=== PATIENT | male | born 1975 | race Caucasian/White ===

== ENCOUNTER 2016-12-20 09:23 | Emergency (ER) | payer BC, OTHER ==
[2016-12-20] MEDS ORDERED: Acetaminophen/HYDROcodone 325-10 MG Tab PO ONE (09:42)
[2016-12-20] MEDS ORDERED: Ketorolac 30 MG/ML SDV IM ONE (09:42)
--- NOTE | 2016-12-20 09:47 | EDM.PDOC ---
ED HPI GENERAL MEDICAL PROBLEM - General Chief Complaint: Lower Extremity Injury/Pain Stated Complaint: left knee pain Time Seen by Provider: 12/20/16 09:37 Source of Information: Reports: Patient History Limitations: Reports: No Limitations - History of Present Illness INITIAL COMMENTS - FREE TEXT/NARRATIVE: Patient presents to the emergency room today with complaints of left knee pain. He was out deer hunting when he stepped out stepped into a hole and fell twisting his left knee. He denies hitting his head denies loss of consciousness he has no other complaints this morning he has lateral soreness and overall joint edema to 2 soft tissue swelling. Denies any other medical history he has no allergies. Patient denies smoking alcohol use or drug use. Onset: Today, Sudden Quality: Reports: Ache Severity: Moderate Improves with: Reports: Cold Therapy Worsens with: Reports: Movement Associated Symptoms: Reports: No Other Symptoms - Related Data Allergies Allergy/AdvReac Type Severity Reaction Status Date / Time No Known Allergies Allergy Verified 12/20/16 10:04 Home Meds: Home Meds FLUoxetine [PROzac] 2 tab PO DAILY 08/05/14 [History] Past Medical History Other Musculoskeletal History: Knee injury 07/07, torn ligaments (petellar) Other Psychiatric History: ETOH abuse Review of Systems - Review of Systems Review Of Systems: See Below Constitutional: Reports: No Symptoms Eyes: Reports: No Symptoms Ears: Reports: No Symptoms Nose: Reports: No Symptoms Mouth/Throat: Reports: No Symptoms Respiratory: Reports: No Symptoms Cardiovascular: Reports: No Symptoms GI/Abdominal: Reports: No Symptoms Genitourinary: Reports: No Symptoms Musculoskeletal: Reports: Leg Pain (left) Skin: Reports: No Symptoms Neurological: Reports: No Symptoms Psychiatric: Reports: No Symptoms ED EXAM, GENERAL - Physical Exam Exam: See Below Exam Limited By: No Limitations General Appearance: Alert, WD/WN, Mild Distress Peripheral Pulses: 2+: Posterior Tibial (L), Posterior Tibial (R), Dorsalis Pedis (L), Dorsalis Pedis (R) Extremities: Normal Inspection, Normal Capillary Refill, Joint Swelling, Limited Range of Motion (On exam patient's left knee has swelling varus and valgus maneuvers are otherwise negative anterior drawer test is negative, knee appears stable and intact) Neurological: Alert, Oriented Course - Re-Assessments/Exams Free Text/Narrative Re-Assessment/Exam: 12/20/16 10:47 X-rays negative for acute process in the left knee. We'll place left knee in an immobilizer has heat patient has a MRI scheduled for tomorrow morning and he will follow up with Dr. Shanelle Coffey. Departure - Departure Time of Disposition: 10:57 Disposition: Home, Self-Care 01 Condition: Good Clinical Impression: Injury of left knee - Discharge Information Instructions: Crutch Use, [id number], Knee Sprain, [id number] Additional Instructions: Make sure to elevate urine left knee above the level of the heart to help reduce swelling. Make sure to use compression wrap to reduce swelling. You can also put ice on your knee for 20-30 minutes at a time do not place directly on your knee to reduce the risk of frostbite. Usual pain medication as prescribed. Make sure to leave your knee in the immobilizer as much as possible. You may also use it while sleeping. Make sure to go to your MRI appointment tomorrow. The results will be sent to Dr. Shanelle Coffey at [facility] . Please call her to make an appointment at your earliest convenience to review the MRI results. She will review additional interventions if needed at that appointment. Please call us with any questions or concerns. - Problem List & Annotations (1) Injury of left knee SNOMED Code(s): 488954977 Code(s): S89.92XA - UNSPECIFIED INJURY OF LEFT LOWER LEG, INITIAL ENCOUNTER Status: Acute Priority: Low Current Visit: Yes Qualifiers: Encounter type: initial encounter Qualified Code(s): S89.92XA - Unspecified injury of left lower leg, initial encounter - Problem List Review Problem List Initiated/Reviewed/Updated: Yes - Assessment/Plan Assessment:: left knee sprain Plan: Make sure to elevate urine left knee above the level of the heart to help reduce swelling. Make sure to use compression wrap to reduce swelling. You can also put ice on your knee for 20-30 minutes at a time do not place directly on your knee to reduce the risk of frostbite. Usual pain medication as prescribed. Make sure to leave your knee in the immobilizer as much as possible. You may also use it while sleeping. Make sure to go to your MRI appointment tomorrow. The results will be sent to Dr. Shanelle Coffey at [facility] . Please call her to make an appointment at your earliest convenience to review the MRI results. She will review additional interventions if needed at that appointment. Please call us with any questions or concerns.
[2016-12-20 10:09] VITALS: BP 120/75
== END 2016-12-20 11:00 | disposition home or self-care (01) ==
LOC: VM.ED 09:23
DX: S83.92XA Sprain of unspecified site of left knee, initial encounter (principal); W19.XXXA Unspecified fall, initial encounter
CPT/HCPCS: 73562; 96372; 99283; A9270; J1885

== ENCOUNTER 2017-12-22 21:35 | Emergency (ER) | payer OTHER ==
[2017-12-22 22:13] VITALS: BP 145/93
--- NOTE | 2017-12-22 22:18 | EDM.PDOC ---
ED HPI GENERAL MEDICAL PROBLEM - General Chief Complaint: Lower Extremity Injury/Pain Stated Complaint: Left knee injury Time Seen by Provider: 12/22/17 21:47 Source of Information: Reports: Patient History Limitations: Reports: No Limitations - History of Present Illness INITIAL COMMENTS - FREE TEXT/NARRATIVE: Patient was lifting at work and turned to his left. He has pain to the outside and back of his leg and felt his leg pull in that area. He states his knee does also buckle. Onset: Other Onset Date: 12/20/17 Duration: Getting Worse, Intermittent Location: Reports: Lower Extremity, Left Quality: Reports: Sharp Severity: Mild Worsens with: Reports: Movement Associated Symptoms: Reports: No Other Symptoms left knee Pain Score (Numeric/FACES): 3 - Related Data Allergies Allergy/AdvReac Type Severity Reaction Status Date / Time No Known Allergies Allergy Verified 12/22/17 22:14 Home Meds: Home Meds FLUoxetine [PROzac] 40 mg PO DAILY 08/05/14 [History] Past Medical History Other Musculoskeletal History: Knee injury 07/07, torn ligaments (petellar) Psychiatric History: Reports: Depression Other Psychiatric History: ETOH abuse - Past Surgical History HEENT Surgical History: Reports: Adenoidectomy, Tonsillectomy GI Surgical History: Reports: Hernia, Inguinal Review of Systems - Review of Systems Review Of Systems: See Below Constitutional: Reports: No Symptoms Eyes: Reports: No Symptoms Ears: Reports: No Symptoms Nose: Reports: No Symptoms Mouth/Throat: Reports: No Symptoms Respiratory: Reports: No Symptoms Cardiovascular: Reports: No Symptoms GI/Abdominal: Reports: No Symptoms Genitourinary: Reports: No Symptoms Musculoskeletal: Reports: Leg Pain (left knee) Skin: Reports: No Symptoms Neurological: Reports: No Symptoms Psychiatric: Reports: No Symptoms ED EXAM, GENERAL - Physical Exam Exam: See Below Exam Limited By: No Limitations General Appearance: Alert, WD/WN, No Apparent Distress Peripheral Pulses: 2+: Posterior Tibial (L), Posterior Tibial (R), Dorsalis Pedis (L), Dorsalis Pedis (R) Extremities: Normal Inspection, No Pedal Edema, Normal Capillary Refill, Leg Pain (left leg pain, mild knee edema 1+, varus/valgus maneuver illicits pain, negative anterior drawer test) Psychiatric: Normal Affect, Normal Mood Skin Exam: Warm, Dry, Intact, Normal Color, No Rash Lymphatic: No Adenopathy Course - Vital Signs Last Recorded V/S: Last Vital Signs Temp 36.4 C 12/22/17 21:35 Pulse 65 12/22/17 21:35 Resp 16 12/22/17 21:35 BP 145/93 H 12/22/17 21:35 Pulse Ox 96 12/22/17 21:35 - Radiology Interpretation Free Text/Narrative:: 12/23/17 1533 MRI results called back to patient. Negative for ligament or cartilage damage. Does have a ruptured popliteal cyst. Recommended follow up with primary doctor. Departure - Departure Time of Disposition: 22:12 Disposition: Home, Self-Care 01 Condition: Good Clinical Impression: Ruptured cyst of left popliteal space Left knee sprain Qualifiers: Encounter type: initial encounter Involved ligament of knee: unspecified ligament Qualified Code(s): S83.92XA - Sprain of unspecified site of left knee, initial encounter - Discharge Information *PRESCRIPTION DRUG MONITORING PROGRAM REVIEWED*: Not Applicable *COPY OF PRESCRIPTION DRUG MONITORING REPORT IN PATIENT AMARI: Not Applicable Instructions: Knee Sprain, Adult Referrals: PCP,Unknown [Primary Care Provider] - Forms: ED Department Discharge Additional Instructions: You are scheduled for an MRI tomorrow. You are scheduled for 11:15. Please arrive 15 minutes early to prepare paperwork. The test will take approximately 30 minutes. I will follow up and call you with the results later tomorrow. Elevate your leg, ice, and alternate tylenol and ibuprofen for pain and swelling. You may also take aleve/naproxen. Please call if you have any additional questions or concerns. - Problem List & Annotations (1) Left knee sprain SNOMED Code(s): 77605336 Code(s): S83.92XA - SPRAIN OF UNSPECIFIED SITE OF LEFT KNEE, INITIAL ENCOUNTER Status: Acute Priority: Medium Qualifiers: Encounter type: initial encounter Involved ligament of knee: unspecified ligament Qualified Code(s): S83.92XA - Sprain of unspecified site of left knee , initial encounter - Problem List Review Problem List Initiated/Reviewed/Updated: Yes - Assessment/Plan Assessment:: left knee sprain Plan: You are scheduled for an MRI tomorrow. You are scheduled for 11:15. Please arrive 15 minutes early to prepare paperwork. The test will take approximately 30 minutes. I will follow up and call you with the results later tomorrow. Elevate your leg, ice, and alternate tylenol and ibuprofen for pain and swelling. You may also take aleve/naproxen. Please call if you have any additional questions or concerns.
== END 2017-12-22 22:35 | disposition home or self-care (01) ==
LOC: VM.ED 21:35
DX: S83.92XA Sprain of unspecified site of left knee, initial encounter (principal); M66.0 Rupture of popliteal cyst; M66.174 Rupture of synovium, right foot; X50.0XXA Overexertion from strenuous movement or load, initial encounter; Y99.0 Civilian activity done for income or pay
CPT/HCPCS: 99283

== ENCOUNTER 2018-09-18 16:44 | Emergency (ER) | payer OTHER ==
[2018-09-18] MEDS ORDERED: Ketorolac 30 MG/ML SDV IM ONE (16:55)
--- NOTE | 2018-09-18 16:57 | EDM.PDOC ---
ED HPI GENERAL MEDICAL PROBLEM - General Chief Complaint: Lower Extremity Injury/Pain Stated Complaint: RT ANKLE SWOLLEN AND SORE Time Seen by Provider: 09/18/18 16:45 Source of Information: Reports: Patient History Limitations: Reports: No Limitations - History of Present Illness INITIAL COMMENTS - FREE TEXT/NARRATIVE: Patient comes in to the emergency department with complaint of her right ankle injury. Patient states this happened approximately 4 nights ago. He is walking home from a bar Saturday night and fell twisting his right ankle. He states it is been able to ambulate on that ankle ever since. However the pain is progressively getting worse. Today he states that it is the worse that is been all week. It's swollen cramping sensation, and sharp sensation of discomfort. He is having difficulty bearing weight. He denies any numbness or tingling on the lower extremity but states he's got cramping sensation on the medial aspect of the ankle. He also denies any redness or increased warmth to that extremity. Has limited range of motion today due to the pain and discomfort. He denies any CMS changes. He also denies any previous injury, fracture, or surgeries on that ankle. Onset: Sudden, Gradual Quality: Reports: Sharp Severity: Severe Improves with: Reports: Immobilization Worsens with: Reports: Movement Associated Symptoms: Reports: No Other Symptoms Treatments POLISHER ALUMINUM: Reports: NSAIDS Right Ankle Pain Score (Numeric/FACES): 4 - Related Data Allergies Allergy/AdvReac Type Severity Reaction Status Date / Time No Known Allergies Allergy Verified 09/18/18 16:58 Home Meds: Home Meds FLUoxetine [PROzac] 40 mg PO DAILY 08/05/14 [History] Past Medical History Other Musculoskeletal History: Knee injury 07/07, torn ligaments (petellar) Psychiatric History: Reports: Depression Other Psychiatric History: ETOH abuse - Past Surgical History HEENT Surgical History: Reports: Adenoidectomy, Tonsillectomy GI Surgical History: Reports: Hernia, Inguinal Review of Systems - Review of Systems Review Of Systems: See Below Constitutional: Reports: No Symptoms Eyes: Reports: No Symptoms Ears: Reports: No Symptoms Nose: Reports: No Symptoms Mouth/Throat: Reports: No Symptoms Respiratory: Reports: No Symptoms Cardiovascular: Reports: No Symptoms GI/Abdominal: Reports: No Symptoms Genitourinary: Reports: No Symptoms Skin: Reports: No Symptoms Neurological: Reports: No Symptoms Psychiatric: Reports: No Symptoms ED EXAM, GENERAL - Physical Exam Exam: See Below Exam Limited By: No Limitations General Appearance: Alert, WD/WN, No Apparent Distress Respiratory/Chest: No Respiratory Distress, No Accessory Muscle Use Cardiovascular: Normal Peripheral Pulses, Regular Rate, Rhythm Peripheral Pulses: 3+: Dorsalis Pedis (L), Dorsalis Pedis (R) Back Exam: Normal Inspection, Full Range of Motion Extremities: Leg Pain (right ankle-moderate swelling around ankle joint, ecchymosis noted on the medial aspect of the arch. Limited ROM due to pain on extension, flexion, and adduction) Neurological: Alert, Oriented Psychiatric: Normal Affect, Normal Mood Course - Vital Signs Last Recorded V/S: Last Vital Signs Temp 36.6 C 09/18/18 16:50 Pulse 82 09/18/18 16:50 Resp 16 09/18/18 16:50 BP 141/89 H 09/18/18 16:50 Pulse Ox 95 09/18/18 16:50 - Orders/Labs/Meds Orders: Active Orders 24 hr Category Date Time Status Ankle Min 3V Rt [CR] Stat Exams 09/18/18 16:51 Taken Meds: Medications Discontinued Medications Generic Name Dose Route Start Last Admin Trade Name Freq PRN Reason Stop Dose Admin Ketorolac Tromethamine 30 mg 09/18/18 16:55 09/18/18 17:02 Toradol IM 09/18/18 16:56 30 mg ONETIME ONE Administration Departure - Departure Time of Disposition: 18:05 Disposition: Home, Self-Care 01 Condition: Good Clinical Impression: Moderate right ankle sprain Qualifiers: Encounter type: initial encounter Qualified Code(s): S93.401A - Sprain of unspecified ligament of right ankle, initial encounter - Discharge Information *PRESCRIPTION DRUG MONITORING PROGRAM REVIEWED*: Not Applicable *COPY OF PRESCRIPTION DRUG MONITORING REPORT IN PATIENT AMARI: Not Applicable Instructions: Ankle Sprain, Ankle Exercises-SportsMed, Pain Medicine Instructions, [id number] Referrals: PCP,None [Primary Care Provider] - Forms: ED Department Discharge Additional Instructions: 1. rest 2. elevated the extremity as much as possible above the level of the heart 3. apply ice 3-4 times a day for 20 minutes each time 4. Wear the brace for comfort and compression. Can remove to shower and to complete range of motion of the ankle 5. Follow up as needed 6. Activity on that ankle should be reduced for the next couple days to allow for healing. 7. wear proper support shoes to prevent from further injuring 8. Can take ibuprofen and Tylenol as needed for pain and discomfort 9. Call with any questions or concerns - My Orders Last 24 Hours: My Active Orders 09/18/18 16:51 Ankle Min 3V Rt [CR] Stat - Assessment/Plan Last 24 Hours: My Active Orders 09/18/18 16:51 Ankle Min 3V Rt [CR] Stat Assessment:: 1. right ankle injury-sprain Plan: 1. xray completed. Results reviewed with the patient 2. Ketoralac ordered in the ED. 3. Ice applied in the ER. 4. Air splint applied to help with comfort 5. Education regarding, rest, ice, compress, elevated, activity, diet, OTC medication and follow up provided 6. All questions and concerns addressed prior to discharge
[2018-09-18 17:11] VITALS: BP 141/89; PULSE 82
--- NOTE | 2018-09-18 18:01 | CR ---
[id number] RAD/RAD Ankle Right 3V Min EXAM: RAD Ankle Right 3V Min CLINICAL DATA: TRAUMA COMPARISON: NO PREVIOUS SIMILAR EXAM IS AVAILABLE. FINDINGS: No fracture or dislocation is seen. There is no radiopaque foreign body in the soft tissues. There is no air in the soft tissues. There is no cortical thickening or periosteal reaction either. IMPRESSION: NEGATIVE PLAIN FILM EXAM. Jae Sweet MD 09/18/18 [id number] Thank you for allowing us to participate in the care of your patient.
== END 2018-09-18 18:14 | disposition home or self-care (01) ==
LOC: VM.ED 16:44
DX: S93.401A Sprain of unspecified ligament of right ankle, initial encounter (principal); F32.9 Major depressive disorder, single episode, unspecified; Z79.899 Other long term (current) drug therapy; X50.9XXA Other and unspecified overexertion or strenuous movements or postures, initial encounter
CPT/HCPCS: 73610; 99283; J1885

== ENCOUNTER 2019-05-01 20:02 | Emergency (ER) | payer OTHER ==
[2019-05-01] MEDS ORDERED: Sodium Chloride 0.9% 10 ML Syringe FLUSH PRN (20:37)
[2019-05-01] MEDS ORDERED: Sodium Chloride 0.9% 1,000 ML IV ONE (20:38)
[2019-05-01] MEDS ORDERED: Ondansetron 4 MG/2 ML SDV IVPUSH ONE (20:38)
[2019-05-01] MEDS ORDERED: HYDROmorphone 1 MG/ML Syringe IVPUSH ONE (20:39)
[2019-05-01 21:18] LABS: ANION GAP 14.7 mmol/L (10-20); CHLORIDE,CL 103 mmol/L (98-107); SODIUM,NA 141 mmol/L (136-145)
[2019-05-01] MEDS ORDERED: Iopamidol 612 MG/ML 100 ML Bottle IVPUSH ONE (21:31)
[2019-05-01] MEDS ORDERED: Take Home: metroNIDAZOLE 500 MG Tab, 4 Tab Pack PO ONE (22:21)
[2019-05-01] MEDS ORDERED: Take Home: Ciprofloxacin 500 MG Tab, 2 Tab Pack PO ONE (22:21)
--- NOTE | 2019-05-02 01:49 | EDM.PDOC ---
ED HPI GENERAL MEDICAL PROBLEM - General Stated Complaint: ABDOMINAL PAIN Time Seen by Provider: 05/01/19 20:02 Source of Information: Reports: Patient History Limitations: Reports: No Limitations - History of Present Illness INITIAL COMMENTS - FREE TEXT/NARRATIVE: Pt. presents to ER with complaints of LLQ abdominal pain. Denies any fever or chills. He also complains of some eliceo bloody stools. No nausea or vomiting. Pt. denies discomfort like this in the past. Pt. denies any chest pain or shortness of breath. Pt. denies any dysuria, frequency or urgency. He denies any trauma to the area. Onset: Today Onset Date: 05/02/19 Location: Reports: Abdomen Quality: Reports: Ache Severity: Moderate Associated Symptoms: Reports: Nausea/Vomiting. Denies: Fever/Chills, Rash, Seizure, Shortness of Breath, Syncope - Related Data Allergies Allergy/AdvReac Type Severity Reaction Status Date / Time No Known Allergies Allergy Verified 09/18/18 16:58 Home Meds: Home Meds FLUoxetine [PROzac] 40 mg PO DAILY 08/05/14 [History] Past Medical History Other Musculoskeletal History: Knee injury 07/07, torn ligaments (petellar) Psychiatric History: Reports: Depression Other Psychiatric History: ETOH abuse - Past Surgical History HEENT Surgical History: Reports: Adenoidectomy, Tonsillectomy GI Surgical History: Reports: Hernia, Inguinal ED ROS GENERAL - Review of Systems Review Of Systems: See Below Constitutional: Reports: No Symptoms HEENT: Reports: No Symptoms Respiratory: Reports: No Symptoms Cardiovascular: Reports: No Symptoms Endocrine: Reports: No Symptoms GI/Abdominal: Reports: Abdominal Pain, Bloody Stool, Diarrhea, Hematochezia. Denies: Black Stool, Constipation, Decreased Appetite, Difficulty Swallowing, Distension, Hematemesis, Melena, Nausea, Vomiting : Reports: No Symptoms Musculoskeletal: Reports: No Symptoms Skin: Reports: No Symptoms Neurological: Reports: No Symptoms ED EXAM, GENERAL - Physical Exam Exam: See Below Exam Limited By: No Limitations General Appearance: Alert, WD/WN, No Apparent Distress Nose: Normal Inspection, Normal Mucosa, No Blood Throat/Mouth: Normal Inspection, Normal Lips, Normal Teeth, Normal Gums, Normal Oropharynx, Normal Voice, No Airway Compromise Head: Atraumatic, Normocephalic Neck: Normal Inspection, Supple, Non-Tender, Full Range of Motion Respiratory/Chest: No Respiratory Distress, Lungs Clear, Normal Breath Sounds, No Accessory Muscle Use, Chest Non-Tender Cardiovascular: Normal Peripheral Pulses, Regular Rate, Rhythm, No Edema, No Gallop, No JVD, No Murmur, No Rub Peripheral Pulses: 4+: Radial (R) GI/Abdominal: Normal Bowel Sounds, Soft, Tender. No: Guarding, Rigid, Rebound, Mass, Hepatomegaly (Male) Exam: Deferred Rectal (Males) Exam: Deferred Back Exam: Normal Inspection, Full Range of Motion Extremities: Normal Inspection, Normal Range of Motion, Non-Tender, No Pedal Edema, Normal Capillary Refill Neurological: Alert, Oriented, CN II-XII Intact, Normal Cognition, Normal Gait, Normal Reflexes, No Motor/Sensory Deficits Psychiatric: Normal Affect, Normal Mood Skin Exam: Warm, Dry, Intact, Normal Color, No Rash Lymphatic: No Adenopathy Course - Orders/Labs/Meds Orders: Active Orders 24 hr Category Date Time Status Abdomen Pelvis w Cont [CT] Stat Exams 05/01/19 21:26 Taken UA W/MICROSCOPIC [URIN] Stat Lab 05/01/19 20:38 Ordered Sodium Chloride 0.9% [Saline Flush] Med 05/01/19 20:37 Active 10 ml FLUSH ASDIRECTED PRN Peripheral IV Insertion Adult [OM.PC] Routine Oth 05/01/19 20:38 Ordered Medication Orders Sodium Chloride (Saline Flush) 10 ml FLUSH ASDIRECTED PRN PRN Reason: Keep Vein Open Labs: Laboratory Tests 05/01/19 05/01/19 05/01/19 Range/Units 20:50 20:50 20:50 WBC 9.0 (4.0-10.0) x10^3/uL RBC 4.65 (4.5-6.0) x10^6/uL Hgb 13.7 L (14.0-18.0) g/dL Hct 41.3 (40.0-52.0) % MCV 88.8 (78.0-93.0) fL MCH 29.5 (26.0-32.0) pg MCHC 33.2 (32.0-36.0) g/dL RDW Coeff of Ha 12.8 (10.0-15.0) % Plt Count 232 (130-400) x10^3/uL Neut % (Auto) 74.1 (50.0-80.0) % Lymph % (Auto) 15.8 L (25.0-50.0) % Garrett % (Auto) 8.8 (2.0-11.0) % Eos % (Auto) 1.1 (0.0-4.0) % Baso % (Auto) 0.2 (0.2-1.2) % PT 11.6 (10.0-12.8) SEC INR 1.0 L (2.0-3.5) Sodium 141 (136-145) mmol/L Potassium 3.7 (3.5-5.1) mmol/L Chloride 103 (98-107) mmol/L Carbon Dioxide 27 (21-32) mmol/L Anion Gap 14.7 (10-20) mmol/L BUN 9 (7-18) mg/dL Creatinine 1.2 (0.70-1.30) mg/dL Est Cr Clr Drug Dosing TNP Estimated GFR (MDRD) > 60 Glucose 115 H (74-106) mg/dL Calcium 8.9 (8.5-10.1) mg/dL Corrected Calcium 9.46 (8.5-10.1) mg/dL Total Bilirubin 1.1 H (0.2-1.0) mg/dL AST 11 L (15-37) U/L ALT 21 (16-63) U/L Alkaline Phosphatase 56 (46-116) U/L C-Reactive Protein 3.1 H (<=0.9) mg/dL Total Protein 7.0 (6.4-8.2) g/dL Albumin 3.3 L (3.4-5.0) g/dL Globulin 3.7 Albumin/Globulin Ratio 0.89 Meds: Medications Generic Name Dose Route Start Last Admin Trade Name Freq PRN Reason Stop Dose Admin Sodium Chloride 10 ml 05/01/19 20:37 Saline Flush FLUSH ASDIRECTED PRN Keep Vein Open Discontinued Medications Generic Name Dose Route Start Last Admin Trade Name Freq PRN Reason Stop Dose Admin Ciprofloxacin 1 packet 05/01/19 22:21 05/01/19 22:40 Take Home: Ciprofloxacin 500 Mg, 2 Tab Pack PO 05/01/19 22:22 1 packet ONETIME ONE Administration Hydromorphone HCl 1 mg 05/01/19 20:39 05/01/19 20:59 Dilaudid IVPUSH 05/01/19 20:40 1 mg ONETIME ONE Administration Sodium Chloride 1,000 mls @ 1,000 mls/hr 05/01/19 20:38 05/01/19 20:52 Normal Saline IV 05/01/19 21:37 1,000 mls/hr .BOLUS ONE Administration Iopamidol 100 ml 05/01/19 21:31 Isovue-300 (61%) IVPUSH 05/01/19 21:32 ONETIME ONE Metronidazole 1 packet 05/01/19 22:21 05/01/19 22:39 Take Home: Metronidazole 500 Mg, 4 Tab Pack PO 05/01/19 22:22 1 packet ONETIME ONE Administration Ondansetron HCl 4 mg 05/01/19 20:38 05/01/19 20:56 Zofran IVPUSH 05/01/19 20:39 4 mg ONETIME ONE Administration - Radiology Interpretation Free Text/Narrative:: CT abdomen and pelvis showed evidence of acute diverticulitis Departure - Departure Time of Disposition: 23:00 Disposition: Home, Self-Care 01 Clinical Impression: Diverticulitis - Discharge Information Instructions: Diverticulitis, [id number], Ciprofloxacin tablets, Metronidazole tablets or capsules Referrals: PCP,None [Primary Care Provider] - Additional Instructions: Cipro 500mg 1 tab twice daily for 10 days Flagyl 500mg 1 tab three times daily for 10 days Minimize consumption of nuts and seeds. Also, Try to consume more fruits and vegetables, as this will help make your stools more bulky. Minimize consumption of high fat/refined foods. After the diarrhea has resolved, you might want to start miralax once daily to help soften the stools as well. It is also important that you drink plenty of water (at least 8-10 big glasses per day). Recheck in clinic in 10-14 days, sooner if having worsening discomfort, fever, chills, etc. - My Orders Last 24 Hours: My Active Orders 05/01/19 20:37 Sodium Chloride 0.9% [Saline Flush] 10 ml FLUSH ASDIRECTED PRN 05/01/19 20:38 UA W/MICROSCOPIC [URIN] Stat Peripheral IV Insertion Adult [OM.PC] Routine 05/01/19 21:26 Abdomen Pelvis w Cont [CT] Stat - Assessment/Plan Last 24 Hours: My Active Orders 05/01/19 20:37 Sodium Chloride 0.9% [Saline Flush] 10 ml FLUSH ASDIRECTED PRN 05/01/19 20:38 UA W/MICROSCOPIC [URIN] Stat Peripheral IV Insertion Adult [OM.PC] Routine 05/01/19 21:26 Abdomen Pelvis w Cont [CT] Stat Plan: Cipro 500mg 1 tab twice daily for 10 days Flagyl 500mg 1 tab three times daily for 10 days Minimize consumption of nuts and seeds. Also, Try to consume more fruits and vegetables, as this will help make your stools more bulky. Minimize consumption of high fat/refined foods. After the diarrhea has resolved, you might want to start miralax once daily to help soften the stools as well. It is also important that you drink plenty of water (at least 8-10 big glasses per day). Recheck in clinic in 10-14 days, sooner if having worsening discomfort, fever, chills, etc.
[2019-05-02 02:34] VITALS: BP 121/78; PULSE 83
--- NOTE | 2019-05-02 09:43 | CT ---
[id number] CT/CT Abdomen Pelvis W IV EXAM: ABDOMEN AND PELVIS CT WITH CONTRAST INDICATION: LLQ ABD PAIN. BLOODY STOOLS. COMPARISON: None. DISCUSSION: There are multiple sigmoid diverticula. There is a thick-walled segment with mild to moderate surrounding inflammatory changes compatible with acute diverticulitis. No drainable abscess or remote free air. After the acute episode, colonoscopy may be useful to exclude other underlying pathology. Small fat-containing umbilical hernia. The gallbladder is incompletely distended secondary to nonfasting status. The liver, pancreas, spleen, adrenal glands, kidneys, small bowel, and the appendix are normal in appearance. The osseous structures are unremarkable. IMPRESSION: 1. Acute sigmoid diverticulitis. No drainable abscess or distant free air. Armand Aldridge MD 05/02/19 0942 Thank you for allowing us to participate in the care of your patient.
== END 2019-05-01 22:54 | disposition home or self-care (01) ==
LOC: VM.ED 20:02
DX: K57.32 Diverticulitis of large intestine without perforation or abscess without bleeding (principal); F32.9 Major depressive disorder, single episode, unspecified; Z79.899 Other long term (current) drug therapy
CPT/HCPCS: 36415; 74177; 80053; 81001; 81002; 82272; 85025; 85610; 86140; 96361; 96374; 96375; 99285-25; A9270-GY; J1170; J2405; J7030

== ENCOUNTER 2019-09-14 12:22 | Emergency (ER) | payer OTHER ==
[2019-09-14] MEDS ORDERED: Ketorolac 30 MG/ML SDV IM ONE (12:31)
[2019-09-14] MEDS ORDERED: methylPREDNISolone Sodium Succinate 125 MG/2 ML SDV IM ONE (12:31)
[2019-09-14 12:35] VITALS: BP 115/65; PULSE 76
--- NOTE | 2019-09-14 17:33 | EDM.PDOC ---
ED HPI GENERAL MEDICAL PROBLEM - General Chief Complaint: Lower Extremity Injury/Pain Time Seen by Provider: 09/14/19 12:25 Source of Information: Reports: Patient History Limitations: Reports: No Limitations - History of Present Illness INITIAL COMMENTS - FREE TEXT/NARRATIVE: Pt. presents to ER with complaints of R great toe pain. Pt. states that he has a longstanding history of gout. He is out of his indomethacin. Denies any trauma to the extremity. No fever or chills. Pt. states that he doesn't think he has been drinking enough water. Onset: Today Location: Reports: Lower Extremity, Right Quality: Reports: Throbbing Severity: Severe Right Toe-Long Pain Score (Numeric/FACES): 10 - Related Data Allergies Allergy/AdvReac Type Severity Reaction Status Date / Time No Known Allergies Allergy Verified 09/14/19 12:28 Home Meds: Home Meds FLUoxetine [PROzac] 40 mg PO DAILY 08/05/14 [History] Past Medical History Other Musculoskeletal History: Knee injury 07/07, torn ligaments (petellar) Psychiatric History: Reports: Depression Other Psychiatric History: ETOH abuse - Past Surgical History HEENT Surgical History: Reports: Adenoidectomy, Tonsillectomy GI Surgical History: Reports: Hernia, Inguinal Social & Family History - Tobacco Use Smoking Status *Q: Light Tobacco Smoker Years of Tobacco use: 20 Packs/Tins Daily: 0 Review of Systems - Review of Systems Review Of Systems: See Below Constitutional: Reports: No Symptoms Eyes: Reports: No Symptoms Ears: Reports: No Symptoms Nose: Reports: No Symptoms Mouth/Throat: Reports: No Symptoms Respiratory: Reports: No Symptoms Cardiovascular: Reports: No Symptoms GI/Abdominal: Reports: No Symptoms Genitourinary: Reports: No Symptoms Musculoskeletal: Reports: Foot Pain, Joint Pain, Joint Swelling Skin: Reports: No Symptoms Neurological: Reports: No Symptoms Psychiatric: Reports: No Symptoms ED EXAM, GENERAL - Physical Exam Exam: See Below Exam Limited By: No Limitations General Appearance: Alert, WD/WN, No Apparent Distress Extremities: Joint Swelling, Limited Range of Motion, Redness Course - Vital Signs Last Recorded V/S: Last Vital Signs Temp 37.2 C 09/14/19 12:25 Pulse 76 09/14/19 12:25 Resp 16 09/14/19 12:25 BP 115/65 06/29/20 12:25 Pulse Ox 95 09/14/19 12:25 - Orders/Labs/Meds Meds: Medications Discontinued Medications Generic Name Dose Route Start Last Admin Trade Name Oswaldo PRN Reason Stop Dose Admin Ketorolac Tromethamine 30 mg 09/14/19 12:31 09/14/19 12:43 Toradol IM 09/14/19 12:32 30 mg ONETIME ONE Administration Methylprednisolone Sodium Succinate 125 mg 09/14/19 12:31 09/14/19 12:44 Solu-Medrol IM 09/14/19 12:32 125 mg ONETIME ONE Administration Departure - Departure Time of Disposition: 17:35 Disposition: Home, Self-Care 01 Clinical Impression: Gout - Discharge Information Instructions: Low-Purine Eating Plan Referrals: PCP,None [Primary Care Provider] - Forms: ED Department Discharge Additional Instructions: Indomethacin 50mg 1 tab three times daily as needed for pain Prednisone 20mg 1 tab daily for 5 days Avoid foods outlined on discharge instructions Increase intake of water. Minimize consumption of caffeine and alcohol. Sepsis Event Note (ED) - Evaluation Sepsis Screening Result: No Definite Risk - Focused Exam Vital Signs: Vital Signs Temp Pulse Resp BP Pulse Ox 09/14/19 12:25 37.2 C 76 16 115/65 95 - Problem List Review Problem List Initiated/Reviewed/Updated: Yes - Assessment/Plan Plan: Indomethacin 50mg 1 tab three times daily as needed for pain Prednisone 20mg 1 tab daily for 5 days Avoid foods outlined on discharge instructions Increase intake of water. Minimize consumption of caffeine and alcohol.
== END 2019-09-14 12:50 | disposition home or self-care (01) ==
LOC: VM.ED 12:22
DX: M10.9 Gout, unspecified (principal); F32.9 Major depressive disorder, single episode, unspecified; F17.210 Nicotine dependence, cigarettes, uncomplicated; Z79.899 Other long term (current) drug therapy
CPT/HCPCS: 96372; 99283; J1885; J2930

== ENCOUNTER 2019-10-28 21:57 | Emergency (ER) | payer SELFPAY ==
[2019-10-28] MEDS ORDERED: Lidocaine 1% with EPINEPHrine 1:100,000 20 ML MDV INFILT ONE (22:37)
[2019-10-28 23:46] VITALS: BP 134/84; PULSE 72
--- NOTE | 2019-10-29 06:21 | EDM.PDOC ---
ED HPI GENERAL MEDICAL PROBLEM - General Chief Complaint: Laceration Stated Complaint: Laceration to right thigh Time Seen by Provider: 10/28/19 22:30 Source of Information: Reports: Patient History Limitations: Reports: No Limitations - History of Present Illness INITIAL COMMENTS - FREE TEXT/NARRATIVE: Pt. presents to ER with complaints of laceration to anterior R thigh. Pt. was out golfing and states that he cut it on a fence looking for a lost ball. Pt. admits to drinking heavily tonight. States tetanus is up to date. Denies trauma elsewhere. Onset Date: 10/28/19 Location: Reports: Lower Extremity, Right Quality: Reports: Sharp Right thigh Pain Score (Numeric/FACES): 5 - Related Data Allergies Allergy/AdvReac Type Severity Reaction Status Date / Time No Known Allergies Allergy Verified 10/28/19 23:45 Home Meds: Home Meds FLUoxetine [PROzac] 40 mg PO DAILY 08/05/14 [History] Past Medical History Other Musculoskeletal History: Knee injury 07/07, torn ligaments (petellar) Psychiatric History: Reports: Depression Other Psychiatric History: ETOH abuse - Past Surgical History HEENT Surgical History: Reports: Adenoidectomy, Tonsillectomy GI Surgical History: Reports: Hernia, Inguinal ED ROS GENERAL - Review of Systems Review Of Systems: Comprehensive ROS is negative, except as noted in HPI. ED EXAM, SKIN/RASH Exam: See Below Exam Limited By: No Limitations Skin: Warm, Dry, Other (Series of superficial and subcutaneous lacerations to R anterior thigh. There is a 1 cm sub q laceration and a 3 cm sub q laceration. The rest are superficial and require no intervention.) ED SKIN PROCEDURES - Laceration/Wound Repair Right Anterior Thigh Appearance: Subcutaneous Distal NVT: No Tendon Injury Anesthetic Type: Local Local Anesthesia - Lidocaine (Xylocaine): 1% with EPI Local Anesthetic Volume: Other (7) Saline Irrigation (cc's): 1,000 Exploration/Debridement/Repair: Wound Explored Closed with: Sutures Lac/Wound length In cm: 4 Suture Size: 3-0 Course - Vital Signs Last Recorded V/S: Last Vital Signs Temp 36.8 C 10/28/19 21:57 Pulse 72 10/28/19 21:57 Resp 16 10/28/19 21:57 BP 134/84 10/28/19 21:57 Pulse Ox 97 10/28/19 21:57 - Orders/Labs/Meds Meds: Medications Discontinued Medications Generic Name Dose Route Start Last Admin Trade Name Oswaldo PRN Reason Stop Dose Admin Lidocaine/Epinephrine 20 ml 10/28/19 22:37 10/28/19 22:44 Xylocaine 1% With Epinephrine 1:100,000 INFILT 10/28/19 22:38 7 ml ONETIME ONE Administration Departure - Departure Time of Disposition: 22:58 Disposition: Home, Self-Care 01 Condition: Good Clinical Impression: Laceration - Discharge Information Instructions: Laceration Care, Adult Referrals: Shanelle Velasquez MD [Primary Care Provider] - Forms: ED Department Discharge Additional Instructions: Keep dry for 48 hours. Change dressing once daily. Sutures out in 12 days. Return to ER if redness, swelling, discharge from the area. Sepsis Event Note (ED) - Evaluation Sepsis Screening Result: No Definite Risk - Focused Exam Vital Signs: Vital Signs Temp Pulse Resp BP Pulse Ox 10/28/19 21:57 36.8 C 72 16 134/84 97 - Problem List Review Problem List Initiated/Reviewed/Updated: Yes - Assessment/Plan Plan: Keep dry for 48 hours. Change dressing once daily. Sutures out in 12 days. Return to ER if redness, swelling, discharge from the area.
== END 2019-10-28 22:58 | disposition home or self-care (01) ==
LOC: VM.ED 21:57
DX: S71.111A Laceration without foreign body, right thigh, initial encounter (principal); F32.9 Major depressive disorder, single episode, unspecified; Z79.899 Other long term (current) drug therapy; W26.8XXA Contact with other sharp object(s), not elsewhere classified, initial encounter
CPT/HCPCS: 12002; 99282-25

== ENCOUNTER 2019-12-07 11:09 | Emergency (ER) | payer SELFPAY ==
[2019-12-07] MEDS ORDERED: GI Cocktail Oral Solution 30 ML PO ONE (11:18)
--- NOTE | 2019-12-07 11:37 | CR ---
[id number] RAD/RAD Chest PA And Lateral EXAM: RAD Chest PA And Lateral INDICATION: CHEST PAIN. COMPARISON: None. DISCUSSION: Cardiomediastinal silhouette is normal in size and contour. No infiltrate, effusion, pneumothorax, or edema. IMPRESSION: No significant cardiopulmonary abnormality. Erick Mcgill DO 12/07/19 1136 Thank you for allowing us to participate in the care of your patient.
[2019-12-07 12:10] LABS: CHLORIDE,CL 102 mmol/L (98-107); SODIUM,NA 138 mmol/L (136-145)
[2019-12-07 12:11] LABS: ANION GAP 15.2 mmol/L (10-20)
--- NOTE | 2019-12-07 12:20 | EDM.PDOC ---
ED HPI GENERAL MEDICAL PROBLEM - General Chief Complaint: Chest Pain Time Seen by Provider: 12/07/19 11:09 Source of Information: Reports: Patient History Limitations: Reports: No Limitations - History of Present Illness INITIAL COMMENTS - FREE TEXT/NARRATIVE: Pt. presents to ER with complaints of epigastric pain that he has been experiencing for several days. He states that he does chew [place] chewing tobacco and states that the discomfort gets worse when he does this or swallows. He states that he did drink this weekend and last night. Denies any fever or chills. No shortness of breath. Denies any recent illness or exposure to anyone with fever or chills. Denies any cough. Pt. also reports some discomfort in his L 4th and 5th fingertips. Onset Date: 12/03/19 Location: Reports: Chest, Abdomen - Related Data Allergies Allergy/AdvReac Type Severity Reaction Status Date / Time No Known Allergies Allergy Verified 10/28/19 23:45 Home Meds: Home Meds FLUoxetine [PROzac] 40 mg PO DAILY 08/05/14 [History] Past Medical History Other Musculoskeletal History: Knee injury 07/07, torn ligaments (petellar) Psychiatric History: Reports: Depression Other Psychiatric History: ETOH abuse - Past Surgical History HEENT Surgical History: Reports: Adenoidectomy, Tonsillectomy GI Surgical History: Reports: Hernia, Inguinal ED ROS GENERAL - Review of Systems Review Of Systems: See Below Constitutional: Reports: No Symptoms HEENT: Reports: No Symptoms Respiratory: Reports: No Symptoms Cardiovascular: Reports: Chest Pain Endocrine: Reports: No Symptoms GI/Abdominal: Reports: Other (espigastric pain) : Reports: No Symptoms Musculoskeletal: Reports: Other (L 4th and 5th digit pain) Skin: Reports: No Symptoms Neurological: Reports: No Symptoms Psychiatric: Reports: No Symptoms Hematologic/Lymphatic: Reports: No Symptoms Immunologic: Reports: No Symptoms ED EXAM, GENERAL - Physical Exam Exam: See Below Exam Limited By: No Limitations General Appearance: Alert, WD/WN, No Apparent Distress Eye Exam: Bilateral Eye: EOMI, PERRL Throat/Mouth: Normal Inspection, Normal Lips, Normal Oropharynx, Normal Voice, No Airway Compromise Head: Atraumatic, Normocephalic Neck: Normal Inspection, Supple, Non-Tender, Full Range of Motion Respiratory/Chest: No Respiratory Distress, Lungs Clear, Normal Breath Sounds, No Accessory Muscle Use, Chest Non-Tender Cardiovascular: Normal Peripheral Pulses, Regular Rate, Rhythm, No Edema, No Gallop, No JVD, No Murmur, No Rub Peripheral Pulses: 4+: Radial (R) GI/Abdominal: Soft, Non-Tender, No Organomegaly, No Distention, No Mass (Male) Exam: Deferred Rectal (Males) Exam: Deferred Back Exam: Normal Inspection, Full Range of Motion Extremities: Normal Inspection, Normal Range of Motion, Non-Tender, No Pedal Edema, Normal Capillary Refill Neurological: Alert, Oriented, CN II-XII Intact, Normal Cognition, Normal Gait Psychiatric: Normal Affect, Normal Mood Skin Exam: Warm, Dry, Intact, Normal Color, No Rash EKG INTERPRETATION Rhythm: NSR [place]: Normal P-Wave: Present QRS: Normal ST-T: Normal QT: Normal Course - Orders/Labs/Meds Orders: Active Orders 24 hr Category Date Time Status EKG Documentation Completion [RC] STAT Care 12/07/19 11:17 Active Labs: Laboratory Tests 12/07/19 12/07/19 12/07/19 Range/Units 11:38 11:38 11:38 WBC 5.4 (4.0-10.0) x10^3/uL RBC 4.89 (4.5-6.0) x10^6/uL Hgb 14.8 (14.0-18.0) g/dL Hct 43.0 (40.0-52.0) % MCV 87.9 (78.0-93.0) fL MCH 30.3 (26.0-32.0) pg MCHC 34.4 (32.0-36.0) g/dL RDW Coeff of Ha 13.2 (10.0-15.0) % Plt Count 245 (130-400) x10^3/uL Neut % (Auto) 59.0 (50.0-80.0) % Lymph % (Auto) 29.0 (25.0-50.0) % [place] % (Auto) 8.7 (2.0-11.0) % Eos % (Auto) 2.2 (0.0-4.0) % Baso % (Auto) 1.1 (0.2-1.2) % PT 11.0 (9.5-12.3) SEC INR 1.0 L (2.0-3.5) Sodium 138 (136-145) mmol/L Potassium 4.2 (3.5-5.1) mmol/L Chloride 102 (98-107) mmol/L Carbon Dioxide 25 (21-32) mmol/L Anion Gap 15.2 (10-20) mmol/L BUN 10 (7-18) mg/dL Creatinine 1.0 (0.70-1.30) mg/dL Est Cr Clr Drug Dosing TNP Estimated GFR (MDRD) > 60 Glucose 103 (74-106) mg/dL Calcium 9.2 (8.5-10.1) mg/dL Corrected Calcium 9.28 (8.5-10.1) mg/dL Total Bilirubin 0.9 (0.2-1.0) mg/dL AST 18 (15-37) U/L ALT 27 (16-63) U/L Alkaline Phosphatase 45 L (46-116) U/L Troponin I < 0.017 (<=0.056) ng/mL Total Protein 7.6 (6.4-8.2) g/dL Albumin 3.9 (3.4-5.0) g/dL Globulin 3.7 Albumin/Globulin Ratio 1.05 Meds: Medications Discontinued Medications Generic Name Dose Route Start Last Admin Trade Name Oswaldo PRN Reason Stop Dose Admin Al Hydroxide/Mg Hydroxide 30 ml 12/07/19 11:18 Gi Cocktail PO 12/07/19 11:19 ONETIME ONE - Radiology Interpretation Free Text/Narrative:: chest x-ray negative for acute pathology - Re-Assessments/Exams Free Text/Narrative Re-Assessment/Exam: Pt. was given a GI cocktail. He reported complete improvement in his discomfort. Departure - Departure Time of Disposition: 12:29 Disposition: Home, Self-Care 01 Clinical Impression: GERD (gastroesophageal reflux disease) - Discharge Information Instructions: Food Choices for Gastroesophageal Reflux Disease, Adult Forms: ED Department Discharge Additional Instructions: It is likely that alchohol and chewing [place] were contributing to your discomfort. If you are still having discomfort/problems, recheck in clinic in the next week. You can use Maalox for continued discomfort. If you are still having discomfort, you can use Pepcid for this as well. This is available over the counter at any store. - Problem List Review Problem List Initiated/Reviewed/Updated: Yes - My Orders Last 24 Hours: My Active Orders 12/07/19 11:17 EKG Documentation Completion [RC] STAT - Assessment/Plan Last 24 Hours: My Active Orders 12/07/19 11:17 EKG Documentation Completion [RC] STAT Plan: It is likely that alchohol and chewing [place] were contributing to your discomfort. If you are still having discomfort/problems, recheck in clinic in the next week. You can use Maalox for continued discomfort. If you are still having discomfort, you can use Pepcid for this as well. This is available over the counter at any store.
[2019-12-07 19:57] VITALS: BP 151/95; PULSE 90
== END 2019-12-07 12:29 | disposition home or self-care (01) ==
LOC: VM.ED 11:09
DX: K21.9 Gastro-esophageal reflux disease without esophagitis (principal); F32.9 Major depressive disorder, single episode, unspecified; Z79.899 Other long term (current) drug therapy
CPT/HCPCS: 36415; 71046; 80053; 84484; 85025; 85610; 93005; 99284; A9270; 93010

== ENCOUNTER 2020-09-02 21:14 | Emergency (ER) | payer MEDICAID ==
--- NOTE | 2020-09-02 22:01 | EDM.PDOC ---
ED HPI GENERAL MEDICAL PROBLEM - General Chief Complaint: Lower Extremity Injury/Pain Stated Complaint: KNEE AND FOOT PAIN Time Seen by Provider: 09/02/20 21:30 Source of Information: Reports: Patient History Limitations: Reports: No Limitations - History of Present Illness INITIAL COMMENTS - FREE TEXT/NARRATIVE: Demarcus is a 45 year old male who presents to ER with complaints of significant left knee pain. STarted approximately 9 days ago. Does not recall any injuries. States does "work at [employer] and the floor is slippery so may have twisted it". Has noted increased swelling and able to flex his knee very little. Was seen 2 days ago at the [facility], felt it was gout and started him on Prednisone. States has had gout in the past and does not feel like that kind of pain and typically never feels like his "knee is frozen up". Has been elevating knee, using ice and crutches. Onset: Gradual Duration: Day(s): Location: Reports: Lower Extremity, Left Quality: Reports: Ache Severity: Moderate Improves with: Reports: Rest Worsens with: Reports: Movement Associated Symptoms: Reports: No Other Symptoms Treatments FIRE SUPPORT SPECIALIST: Reports: Other Medication(s) Other Treatments FIRE SUPPORT SPECIALIST: prednisone - Related Data Allergies Allergy/AdvReac Type Severity Reaction Status Date / Time No Known Allergies Allergy Verified 12/07/19 19:44 Home Meds: Home Meds FLUoxetine [PROzac] 40 mg PO DAILY 08/05/14 [History] Past Medical History Musculoskeletal History: Reports: Gout Other Musculoskeletal History: Knee injury 07/07, torn ligaments (petellar) Psychiatric History: Reports: Depression Other Psychiatric History: ETOH abuse - Past Surgical History HEENT Surgical History: Reports: Adenoidectomy, Tonsillectomy GI Surgical History: Reports: Hernia, Inguinal Social & Family History - Tobacco Use Tobacco Use Status *Q: Unknown Ever Used Tobacco Review of Systems - Review of Systems Review Of Systems: See Below Respiratory: Reports: No Symptoms Cardiovascular: Reports: No Symptoms GI/Abdominal: Reports: No Symptoms Musculoskeletal: Reports: Joint Pain, Joint Swelling Skin: Denies: Erythema Neurological: Reports: No Symptoms ED EXAM, GENERAL - Physical Exam Exam: See Below Exam Limited By: No Limitations General Appearance: Alert, WD/WN, No Apparent Distress Extremities: Leg Pain, Limited Range of Motion, Other (left knee effusion noted. Unable to flex knee more than 5 degrees. No pain with knee being extended. No warmth. Tender to posterior knee and lateral knee. ). No: Increased Warmth Neurological: Alert, Oriented Skin Exam: Warm, Dry Departure - Departure Time of Disposition: 22:04 Disposition: Home, Self-Care 01 Condition: Good Clinical Impression: Effusion, left knee Left knee sprain Qualifiers: Encounter type: initial encounter Involved ligament of knee: unspecified ligament Qualified Code(s): S83.92XA - Sprain of unspecified site of left knee, initial encounter - Discharge Information *PRESCRIPTION DRUG MONITORING PROGRAM REVIEWED*: No *COPY OF PRESCRIPTION DRUG MONITORING REPORT IN PATIENT AMARI: No Instructions: Knee Sprain, Adult, [id number] Additional Instructions: 1. Rest knee 2. Elevate as able 3. Weight bear as tolerated 4. Continue with knee splint 5. Finish course of prednisone 6. Tylenol for discomfort, tramadol for more severe pain 7. Follow up in clinic for persisting pain and swelling as may need to proceed with MRI of knee
[2020-09-02] MEDS ORDERED: Take Home: traMADol 50 MG, 4 Tab Pack PO ONE (22:03)
[2020-09-02 23:17] VITALS: BP 148/90; PULSE 66
== END 2020-09-02 22:16 | disposition home or self-care (01) ==
LOC: VM.ED 21:14
DX: S83.92XA Sprain of unspecified site of left knee, initial encounter (principal); M25.462 Effusion, left knee; X50.1XXA Overexertion from prolonged static or awkward postures, initial encounter
CPT/HCPCS: 99283; A9270-GY

== ENCOUNTER 2021-04-22 16:35 | Emergency (ER) | payer SELFPAY ==
[2021-04-22 16:49] VITALS: BP 132/67; PULSE 66
[2021-04-22] MEDS: Take Home: Cephalexin 500 MG Cap, 4 Cap Pack PO ONE (17:09)
== END 2021-04-22 17:15 | disposition home or self-care (01) ==
LOC: VM.ED 16:35
DX: L03.115 Cellulitis of right lower limb (principal)
CPT/HCPCS: 99282; 99283; A9270-GY

== ENCOUNTER 2021-07-01 21:50 | Emergency (ER) | payer SELFPAY ==
[2021-07-01] MEDS ORDERED: Lidocaine 2% with EPINEPHrine 1:100,000 20 ML MDV INJECT ONE (22:34)
[2021-07-01] MEDS ORDERED: cefTRIAXone 1 GM, Lidocaine 1% 2.1 ML IM ONE ×2 (22:40)
[2021-07-01] MEDS ORDERED: Take Home: Sulfamethoxazole/Trimethoprim 800-160 MG Tab, 2 Tab Pack PO ONE (22:54)
[2021-07-01] MEDS ORDERED: Take Home: Acetaminophen/HYDROcodone 325-5 MG, 5 Tab Pack PO ONE (22:54)
[2021-07-02 02:39] VITALS: BP 126/73; PULSE 64
== END 2021-07-01 23:30 | disposition home or self-care (01) ==
LOC: VM.ED 21:50
DX: L03.317 Cellulitis of buttock (principal); L02.31 Cutaneous abscess of buttock
CPT/HCPCS: 10060; 87070; 87077; 96372; 99283; 99283-25; A9270-GY; J0696

== ENCOUNTER 2021-09-19 06:53 | Emergency (ER) | payer OTHER, BC ==
[2021-09-19 07:16] VITALS: BP 111/55; PULSE 70
[2021-09-19] MEDS ORDERED: Ketorolac 30 MG/ML SDV IM ONE (07:20)
[2021-09-19] MEDS ORDERED: Orphenadrine 60 MG/2 ML Inj IM ONE (07:21)
== END 2021-09-19 07:50 | disposition home or self-care (01) ==
LOC: VM.ED 06:53
DX: S39.012A Strain of muscle, fascia and tendon of lower back, initial encounter (principal); W01.0XXA Fall on same level from slipping, tripping and stumbling without subsequent striking against object, initial encounter; Y99.0 Civilian activity done for income or pay
CPT/HCPCS: 96372; 99283; J1885; J2360

== ENCOUNTER 2023-06-19 08:11 | Emergency (ER) | payer BC, OTHER ==
[2023-06-19] MEDS: Ibuprofen 200 MG Tab PO ONE (08:35)
[2023-06-19 09:51] VITALS: BP 121/87; PULSE 70
== END 2023-06-19 09:49 | disposition home or self-care (01) ==
LOC: VM.ED 08:11
DX: S50.01XA Contusion of right elbow, initial encounter (principal); E66.9 Obesity, unspecified; Z91.018 Allergy to other foods; Z87.891 Personal history of nicotine dependence; Z68.37 Body mass index [BMI] 37.0-37.9, adult; W22.8XXA Striking against or struck by other objects, initial encounter
CPT/HCPCS: 73080-RT; 99283; A9270-GY